=== PATIENT | female | born 1990 | race Caucasian/White ===

== ENCOUNTER → 2017-03-04 | Outpatient (CLI) | payer OTHER ==
[~2017-03-04] MED LIST: COLA100C3 PO; FOLI800C PO; IBUP-1114 PO; LEVO100T5 PO; OXYC1TAB23 PO; PRE-TAB3 PO
--- NOTE | 2017-03-04 12:16 | REP ---
Clinical: Anatomical evaluation -- Twin gestation. Comparison: 07/25/2016. Findings: Examination demonstrates known diamniotic dichorionic twin gestation with placentas identified anteriorly (twin A) and fundally towards the right (twin B) and grade II without evidence for placenta previa or abruption. Cervix measures 2.7 cm in length and appears closed. Concordant growth is noted. Gestational age by LMP at 38 weeks 2 days with estimated date of delivery 03/16/2017. TWIN A: Twin A identified in cephalic presentation along the maternal left side. motion is appreciated. Amniotic fluid volume is normal and the deepest pocket measures 3.1 cm. Gestational age by current measurements 36 weeks 5 days. FHR equals 153 beats per minute. Estimated weight 2944 grams ( 30th percentile). Anatomical assessment demonstrates normal structures including cranium, choroid plexus, cavum, facial features, ventricular outflow tracts, diaphragm, stomach, kidneys/bladder. Limited evaluation of the cerebellum/posterior fossa, lungs, four-chamber heart, three-vessel cord/cord insertion, extremities and spine. ------- TWIN B: Twin B identified in breech presentation along the maternal right side. motion is appreciated. Amniotic fluid volume is normal and the deepest pocket measures 7.4 cm. Gestational age by current measurements 35 weeks 6 days. FHR equals 160 beats per minute. Estimated weight 2986 grams ( 32nd percentile). Anatomical assessment demonstrates normal structures including cranium, choroid plexus, cavum, cerebellum/posterior fossa, diaphragm, stomach, three-vessel cord, kidneys/bladder. Limited evaluation of the facial features, lungs, four-chamber heart/ventricular outflow tracts, cord insertion, extremities and spine noted. Impression: Twin gestation as described above. Signed by Pascual Epperson MD 03/04/2017 12:01 P
== END ==
LOC: M RAD 09:37
PROVIDERS: ATTEND Student in an Organized Health Care Education/Training Program
DX: O30.043 Twin pregnancy, dichorionic/diamniotic, third trimester (principal); Z36 Encounter for antenatal screening of mother; Z3A.36 36 weeks gestation of pregnancy; O32.1XX2 Maternal care for breech presentation, fetus 2

== ENCOUNTER 2017-03-05 07:06 | Inpatient (IN) | payer OTHER ==
[2017-03-05] VITALS (7 sets, daily range): BP systolic 98–133; BP diastolic 57–75
[~2017-03-05] VITALS: Ht 167.6 cm; Wt 83.0 kg
[~2017-03-05 07:06] MED LIST changes: -COLA100C3 PO; -IBUP-1114 PO; -OXYC1TAB23 PO
[2017-03-05] MEDS ORDERED: LACTATED RINGER'S 1000 ML IV ONE (07:30)
[2017-03-05 08:57] LABS: MEAN CORPUSCULAR HEMOGLOBIN 34.7 pg (27.0-33.0); MEAN CORPUSCULAR HGB CONC 35.2 g/dl (32.0-36.5); MEAN CORPUSCULAR VOLUME 98.4 fl (80.0-96.0); RED CELL DISTRIBUTION WIDTH 13.6 % (11.5-14.5); WHITE BLOOD COUNT 6.6 K/mm3 (4.0-10.0)
[2017-03-05] MEDS: PRENATAL VITAMINS CHEWABLE TABLET PO SCH (09:00)
[2017-03-05] MEDS ORDERED: MORPHINE PRES-FREE INJ 10 MG/10 ML VIAL (J2274) As Ordered ONE (09:03)
[2017-03-05] MEDS ORDERED: OXYTOCIN INJ 10 UNITS/ML VIAL (J2590) As Ordered ONE (09:03)
[2017-03-05] MEDS ORDERED: BICITRA 30ML SOLN UDC As Ordered ONE (09:52)
[2017-03-05] MEDS ORDERED: BICITRA 30ML SOLN UDC PO ONE (11:00)
[2017-03-05] MEDS ORDERED: NALBUPHINE HCL 10 MG/ML AMP (J2300) IV PRN ×2 (11:06→12:45)
[2017-03-05] MEDS ORDERED: ONDANSETRON 4MG/2ML VIAL (J2405) IV PRN ×3 (11:06→12:45)
[2017-03-05] MEDS ORDERED: ePHEDrine SULFATE 25 MG/5 ML(5MG/ML) SYRINGE As Ordered ONE (11:06)
[2017-03-05] MEDS ORDERED: NALOXONE INJ 0.4 MG/1 ML VIAL (J2310) IV PRN ×2 (11:06)
[2017-03-05] MEDS ORDERED: METOCLOPRAMIDE INJ 10MG/2ML VIAL (J2765) IV PRN ×2 (11:06→12:30)
[2017-03-05] MEDS ORDERED: ONDANSETRON 4MG/2ML VIAL (J2405) As Ordered ONE (11:44)
[2017-03-05] MEDS ORDERED: METHYLERGONOVINE MALEATE 0.2 MG TAB PO PRN (12:30)
[2017-03-05] MEDS ORDERED: RHOGAM 300 MCG (1500 IU) INJ (J2790) IM SCH (12:30)
[2017-03-05] MEDS ORDERED: MOM 30ML SUSPENSION UDC PO PRN (12:30)
[2017-03-05] MEDS ORDERED: MEASLES,MUMPS,RUBELLA VACCINE INJ (MMR-II) (90707) SC SCH (12:30)
[2017-03-05] MEDS ORDERED: DOCUSATE SODIUM 100 MG CAP PO PRN (12:30)
[2017-03-05] MEDS ORDERED: PERCOCET 5MG/325MG TAB PO PRN (12:30)
[2017-03-05] MEDS ORDERED: KETOROLAC 30 MG/ML VIAL (J1885) IV PRN (12:45)
[2017-03-05] MEDS ORDERED: MEPERIDINE INJ 25 MG/ML VIAL (J2175) IV PRN (12:45)
[2017-03-05] MEDS ORDERED: fentaNYL 100 MCG/2 ML INJECTION (J3010) IV PRN (12:45)
[2017-03-05] MEDS: KETOROLAC 30 MG/ML VIAL (J1885) IV SCH ×2 (13:44→18:26)
[2017-03-05] MEDS: LR 1,000 ML IV SCH ×3 (13:48→23:30)
--- NOTE | 2017-03-05 18:23 | RO ---
DATE OF PROCEDURE: 03/05/2017 INDICATION FOR SURGERY: The patient is a 26-year-old G2 P 0-0-1-0 at 38 weeks with known diiodide twin . Twin A noted to be cephalic. Twin B noted to be breech in presentation. Had a long discussion with patient on possible operative vaginal breech delivery versus section. Patient elects for primary low transverse section. INDICATION: Twin with mal-presentation of Twin B. SURGEON: Anibal Win MD REIMBURSEMENT SPECIALIST: Rama Grace MD ANESTHESIA: Spinal, Dr. Mathews ESTIMATED BLOOD LOSS: 600ml URINE: 75 mL IV FLUIDS: Isotonic fluid 1700ml COMPLICATIONS: None DESCRIPTION OF PROCEDURE: The risks, benefits, alternatives, and indications were reviewed. The patient informed consent was obtained. The patient was taken to the operating room where spinal anesthesia was obtained without difficulty. She was then prepped and draped in a normal sterile fashion in dorsal supine position with a left lateral tilt. After a Barroso was placed and a time out was performed , a Pfannenstiel skin incision was made with the scalpel and carried through to the underlying layer of fascia. The fascia was incised in midline and the incision extended laterally with Castillo scissors. Superior aspect of the fascial incision was grasped with Karie clamps times two, elevated and the underlying rectus muscle was dissected off bluntly, aided with Jonathan and Seble. Attention was then turned to the inferior aspect of the incision, which in a similar fashion was grasped, tented up with Karie clamps, and the rectus muscle dissected off with blunt dissection as well as Castillo scissors. Rectus muscles were then in the midline. Peritoneum was identified, tented up and entered digitally. The peritoneal incision was then extended horizontally and superiorly with excellent visualization of the bladder. A bladder blade was then introduced into the abdomen. The vesicouterine peritoneum was identified and incised with Metzenbaum scissors. The incision was then extended laterally creating a bladder flap. After the bladder blade was reinserted the lower uterine segment was incised in a transverse fashion with a scalpel. The amniotic sac was artificially ruptured productive of clear fluid. The uterine incision was then extended in a superior lateral fashion without complication. The bladder blade was removed and A was found to be in cephalic presentation and was delivered through the hysterotomy without complication. The cord was doubly clamped and cut and the was handed off to the awaiting NICU team. The amniotic sac for the second twin was noted and ruptured with Merna clamp. Infant was found to be in the jean breech presentation and the usual breech maneuvers were performed without complication to elicit delivery of twin B. The cord for twin B was also doubly clamped and cut. One clamp was placed on the placenta cord for twin A; two clamps were placed on the cord for twin B. The placenta was then removed with gentle traction on the umbilical cord manually. The uterus was then exteriorized and cleared of all clots and debris. The bladder blade was introduced once again and the uterine incision was repaired with #0 Monocryl in running locked fashion. A second layer #0 Monocryl was used to imbricate the hysterotomy in a horizontal fashion. One figure of eight suture with #0 Monocryl was used for hemostasis. Excellent hemostasis of the hysterotomy was noted at this time. Normal appearing uterus, fallopian tubes and ovaries were noted bilaterally at this time. The posterior cul-de-sac was then irrigated with warm saline and the uterus was reintroduced into the abdomen. The paracolic gutters were also inspected and cleared of all clots and debris. The bladder blade was then removed and again the hysterotomy site was reevaluated and noted to be hemostatic. The fascia was then reapproximated with #0 Vicryl in a running fashion. Subcutaneous layers were closed in two layers in a running fashion with #3-0 Vicryl. The skin was then closed with #4-0 Monocryl in a subcuticular fashion. The surgical site was then covered with Steri-Strips and a pressure dressing was applied. A small benign appearing mole approximately 5 mm x 3 mm was removed with the assistance of a scalpel and closed with a figure of eight subcuticular stitch of #4-0 Monocryl. This was sent down for analysis per patient request. At the completion of the case, bimanual exam was performed with good uterine tone and minimal vaginal bleeding. The patient tolerated the procedure well. Sponge, lap and needle counts were correct times three. The patient was taken to the recovery room in stable condition. Two grams Ancef were provided prior to skin incision. Twin A 's 9, 9 weight: 2626gm. Twin B 's 9, 9 weight: 2566gm. Liya Win OB-[employer] MANAGER MTDD
[2017-03-06] MEDS: KETOROLAC 30 MG/ML VIAL (J1885) IV SCH ×2 (00:43→06:27)
[2017-03-06 02:13] VITALS: BP 106/55
[2017-03-06 06:04] VITALS: BP 116/63
[2017-03-06 07:17] LABS: MEAN CORPUSCULAR HEMOGLOBIN 34.4 pg (27.0-33.0); MEAN CORPUSCULAR HGB CONC 34.4 g/dl (32.0-36.5); RED CELL DISTRIBUTION WIDTH 13.5 % (11.5-14.5); WHITE BLOOD COUNT 7.1 K/mm3 (4.0-10.0)
[2017-03-06] MEDS: PRENATAL VITAMINS CHEWABLE TABLET PO SCH (07:27)
[2017-03-06 10:00] VITALS: BP 110/62
[2017-03-06] MEDS: PERCOCET 5MG/325MG TAB PO PRN ×2 (12:41→18:59)
[2017-03-06 14:00] VITALS: BP 111/52
[2017-03-06] MEDS: IBUPROFEN 800 MG TAB PO SCH ×2 (14:28→21:55)
[2017-03-06 18:00] VITALS: BP_SYST 114; BP_SYST 121; BP_DIAS 72; BP_DIAS 82
[2017-03-06 22:17] VITALS: BP 108/59
[2017-03-07] MEDS: PERCOCET 5MG/325MG TAB PO PRN ×2 (01:46→09:26)
[2017-03-07 06:01] VITALS: BP 114/67
[2017-03-07] MEDS: IBUPROFEN 800 MG TAB PO SCH (06:12)
[2017-03-07] MEDS: PRENATAL VITAMINS CHEWABLE TABLET PO SCH (08:36)
[2017-03-07] MEDS ORDERED: IBUP-1114 PO (10:53)
[2017-03-07] MEDS ORDERED: OXYC1TAB23 PO (10:53)
[2017-03-07] MEDS ORDERED: COLA100C5 PO (10:53)
--- NOTE | 2017-03-07 16:33 | DSES ---
DATE OF ADMISSION: 03/05/2017 DATE OF DISCHARGE: 03/07/2017 In short, the patient is a 26-year-old (G) 2, para (P) 1-0-1-2 now, status post primary low transverse (C) section for DI/DI twin with malpresentation of twin B. ADMISSION DIAGNOSES: 1. Term . 2. DI/DI twin . DISCHARGE DIAGNOSES: 1. Term . 2. DI/DI twin . 3. Status post primary low transverse (C) section. COMPLICATIONS: None. HOSPITAL COURSE: Uncomplicated. Underwent an uncomplicated primary low transverse (C) section with expected recovery without issues. Tolerating oral intake, minimal lochia, breast-feeding, and complete blood count (CBC) appropriate status post surgery. All discharge criteria met. Weight and scores of infant: See previous documentation. DIET: As tolerated. MEDICATIONS: Previously prescribed to the patient. ACTIVITY: Per routine primary low transverse section precautions. FOLLOWUP: Two weeks for incision check or sooner as needed and six weeks for routine check. Patient with previous diagnosis of hyothyroid and will continue on current medication, at this time, as this was dosed previously per discussion with patient. Reviewed all precautions to be discharged from hospital. Routine precautions provided. All questions answered.
== END 2017-03-07 12:00 | disposition home or self-care (01) | DRG 765 ==
LOC: M LDI 07:06 → M OBS 14:06
PROVIDERS: ADMIT Student in an Organized Health Care Education/Training Program; ATTEND Student in an Organized Health Care Education/Training Program
PROC: 10D00Z1 Extraction of Products of Conception, Low, Open Approach (ICD-10-PCS; principal; 2017-03-05 09:30)
DX: O32.1XX2 Maternal care for breech presentation, fetus 2 (principal); O30.043 Twin pregnancy, dichorionic/diamniotic, third trimester; Z37.2 Twins, both liveborn; Z3A.38 38 weeks gestation of pregnancy; E03.9 Hypothyroidism, unspecified; Z79.899 Other long term (current) drug therapy; O99.284 Endocrine, nutritional and metabolic diseases complicating childbirth

== ENCOUNTER 2018-06-01 00:46 | Emergency (ER) | payer OTHER ==
[2018-06-01 01:44] LABS: BASO % 0.5 % (0.0-1.0); EOS # 0.2 10^3/uL (0.0-0.50); EOS % 3.4 % (0.0-3.0); HEMATOCRIT 35.2 % (36.0-47.0); HEMOGLOBIN 11.8 g/dl (12.0-15.5); IMMATURE GRANULOCYTE % 0.2 % (0-3.0); LYMPH # 2.6 10^3/uL (1.5-6.5); LYMPH % 46.8 % (24.0-44.0); MEAN CORPUSCULAR HEMOGLOBIN 30.7 pg (27.0-33.0); MEAN CORPUSCULAR HGB CONC 33.5 g/dl (32.0-36.5); MEAN CORPUSCULAR VOLUME 91.7 fl (80.0-96.0); MONO # 0.6 10^3/uL (0.0-0.8); MONO % 11.3 % (0.0-5.0); NEUTROPHILS # 2.1 10^3/uL (1.8-7.7); NEUTROPHILS % 37.8 % (36.0-66.0); PLATELET COUNT, AUTOMATED 183 10^3/uL (150-450); RED BLOOD COUNT 3.84 10^6/uL (4.00-5.40); RED CELL DISTRIBUTION WIDTH 11.3 % (11.5-14.5); WHITE BLOOD COUNT 5.6 10^3/uL (4.0-10.0)
[2018-06-01 02:14] LABS: ANION GAP 5 MEQ/L (8-16); BLOOD UREA NITROGEN 14 MG/DL (7-18); CALCIUM LEVEL 8.1 MG/DL (8.5-10.1); CARBON DIOXIDE LEVEL 27 MEQ/L (21-32); CHLORIDE LEVEL 109 MEQ/L (98-107); CREATININE FOR GFR 0.76 MG/DL (0.55-1.30); GLOMERULAR FILTRATION RATE > 60.0 (>60); GLUCOSE, FASTING 89 MG/DL (70-100); POTASSIUM SERUM 4.1 MEQ/L (3.5-5.1); SODIUM LEVEL 141 MEQ/L (136-145)
[2018-06-01 02:29] LABS: BEDSIDE GLUCOSE 88 MG/DL (70-105)
[2018-06-01] MEDS: NS 1,000 ML IV (02:39)
== END 2018-06-01 04:05 | disposition home or self-care (01) ==
LOC: M ED 00:46
DX: I95.1 Orthostatic hypotension (principal); E03.9 Hypothyroidism, unspecified; Z79.899 Other long term (current) drug therapy; Z91.040 Latex allergy status
CPT/HCPCS: 93005